=== PATIENT | male | born 1995 | race Caucasian/White ===

== ENCOUNTER 2023-01-10 09:12 | Outpatient (CLI) | payer OTHER, SELFPAY ==
[2023-01-10 20:00] LABS: Alanine Aminotransferase 73 U/L (6-50); Albumin Level 4.5 g/dL (3.5-5.1); Alkaline Phosphatase 59 U/L (38-126); Anion Gap 4 mmol/L (8-16); Aspartate Amino Transferase 79 U/L (17-59); Blood Urea Nitrogen 15 mg/dL (9-20); Calcium 9.3 mg/dL (8.4-10.2); Carbon Dioxide 30 mmol/L (22-30); Chloride 104 mmol/L (98-107); Cholesterol 190 mg/dL (0-200); Estimated Glomerular Filt Rate > 60; Glucose 81 mg/dL (65-110); HDL Direct 59 mg/dL; Potassium 4.3 mmol/L (3.4-5.0); Sodium 138 mmol/L (137-145); Triglycerides 70 mg/dL (<150)
[2023-01-10 20:16] LABS: LDL Cholesterol Direct 94 mg/dL
[2023-01-10 20:36] LABS: Hemoglobin 14.2 g/dL (14.0-18.0); Mean Corpuscular HGB Conc 30.9 g/dl (32-36); Mean Corpuscular Hemoglobin 31.6 pg (26-34); Mean Corpuscular Volume 102.2 fl (80-100); Mean Platelet Volume 13.1 fl (7.4-10.4); Platelet Count Result 190 k/mm3 (150-375); Red Cell Distribution Width 11.9 % (11.5-14.5); White Blood Count 5.2 K/mm3 (4.5-10.0)
== END 2023-01-10 09:13 | disposition home or self-care (01) ==
PROVIDERS: PCP Nurse Practitioner Adult Health; Visit Provider Nurse Practitioner Adult Health
DX: Z13.9 Encounter for screening, unspecified (principal)
CPT/HCPCS: 36415; 80053; 80061; 84443; 85027; 85055

== ENCOUNTER 2023-01-14 09:03 | Outpatient (CLI) | payer OTHER, SELFPAY ==
[2023-01-14 19:17] LABS: Basophils Absolute Auto 0.1 K/mm3 (0.0-0.1); Basophils Percent Auto 1.1 % (0.2-1.2); Eosinophils Absolute Auto 0.3 K/mm3 (0-0.3); Eosinophils Percent Auto 5.4 % (0-4.4); Hematocrit 47.3 % (42.0-52.0); Hemoglobin 15.2 g/dL (14.0-18.0); Immature Granulocyte Absolute 0.03 K/mm3 (0.00-0.031); Immature Granulocyte Percent A 0.6 % (0-0.5); Lymphocytes Absolute Auto 1.65 K/mm3 (0.9-3.2); Lymphocytes Percent Auto 30.7 % (18.3-44.2); Mean Corpuscular HGB Conc 32.1 g/dl (32-36); Mean Corpuscular Hemoglobin 32.5 pg (26-34); Mean Corpuscular Volume 101.1 fl (80-100); Monocytes Absolute Auto 0.5 K/mm3 (0.1-0.6); Monocytes Percent Auto 8.4 % (2.6-8.5); Neutrophils Absolute Auto 2.9 K/mm3 (1.3-6.7); Neutrophils Percent Auto 53.8 % (45.5-73.1); Platelet Count Result 185 k/mm3 (150-375); Red Blood Count 4.68 M/mm3 (4.6-6.20); Red Cell Distribution Width 11.7 % (11.5-14.5); White Blood Count 5.4 K/mm3 (4.5-10.0)
== END 2023-01-14 09:04 | disposition home or self-care (01) ==
PROVIDERS: PCP Nurse Practitioner Adult Health; Visit Provider Nurse Practitioner Adult Health
DX: D69.1 Qualitative platelet defects (principal)
CPT/HCPCS: 36415; 85025

== ENCOUNTER 2024-04-23 07:30 | Outpatient (CLI) | payer OTHER, SELFPAY ==
[2024-04-23 20:02] LABS: Hematocrit 47.1 % (42.0-52.0); Hemoglobin 14.8 g/dL (14.0-18.0); Mean Corpuscular HGB Conc 31.4 g/dl (32-36); Mean Corpuscular Hemoglobin 30.6 pg (26-34); Mean Corpuscular Volume 97.3 fl (80-100); Platelet Count Result 210 k/mm3 (150-375); Red Blood Count 4.84 M/mm3 (4.6-6.20); Red Cell Distribution Width 12.2 % (11.5-14.5); White Blood Count 6.7 K/mm3 (4.5-10.0)
[2024-04-23 20:16] LABS: Alanine Aminotransferase 80 U/L (6-50); Albumin Level 4.3 g/dL (3.5-5.1); Alkaline Phosphatase 76 U/L (38-126); Anion Gap 5 mmol/L (4-12); Aspartate Amino Transferase 84 U/L (17-59); Bilirubin,Total 0.7 mg/dL (0.2-1.3); Blood Urea Nitrogen 18 mg/dL (9-20); Calcium 9.2 mg/dL (8.4-10.2); Carbon Dioxide 27 mmol/L (22-30); Chloride 107 mmol/L (98-107); Cholesterol 223 mg/dL (0-200); Estimated Glomerular Filt Rate > 60; Glucose 84 mg/dL (65-110); HDL Direct 61 mg/dL; Sodium 139 mmol/L (137-145); Triglycerides 180 mg/dL (<150)
[2024-04-23 20:27] LABS: LDL Cholesterol Direct 103 mg/dL
[2024-04-23 21:36] LABS: Hemoglobin A1C 5.1 % (<5.7)
--- OUTSIDE RECORDS SUMMARY | 2024-04-30 06:59 | XMS_ITS | Encounter Summary ---
Author Organization [facility] Address [address] [facility] [address] [place] [id number] Care Team Providers Care Orthotic Practitioner Name Role Phone Marta Buckner NP Primary Care Provider [phone] Reason for Visit * Reason Comments [place] [facility] Redness began yester day. This morning eye was matted closed. Redness today and no change in vision. Denies pain or itchiness. Nothing taken for his sx. 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 Gender Identity Not on file Sexual Orientation Not on file documented as of this encounter Last Filed Vital Signs Vital Sign Reading Time Taken Comments Blood Pressure 126/74 01/27/2023 3:25 PM CDT Pulse 108 01/27/2023 3:25 PM CDT Temperature 36.4 ??C (97.5 ??F) 01/27/2023 3:25 PM CD T Respiratory Rate 16 01/27/2023 3:25 PM CDT Oxygen Saturation 99% 01/27/2023 3:25 PM CDT Inhaled Oxygen Concentration - - Weight 133.8 kg (295 lb) 01/27/2023 3:25 PM CDT Height 177.8 cm (5' 10 ) 01/27/2023 3:25 PM CDT Body Mass Index 42.33 01/27/2023 3:25 PM CDT documented in this encounter Patient Instructions * Patient Instructions* Dimple Horn NP - 01/27/2023 3:30 PM CDT Bacterial Conjunctivitis is contagious. You should not attend work/school/daycare until after usingantibiotics for 24 hours. Use antibiotic drops/ointment as prescribed. Tilt your head back and with one finger gently pull down on the lower eyelid. Drop the prescribed number of drops into the affected eye. Do not blink. Then close both eyes without blinking and block your tear ducts by using your fingers to put mild pressure on your tear ducts (where your eyes meet your nose). Stay in this position for 1-2 minutes minutes to bathe your eyes in the medication. Do not wear contacts while being treated with antibiotics. Use separate towels and wash hands frequently to help prevent the spread of infection. Cool compresses to the affected eye as needed for discomfort. Tylenol or ibuprofen for pain as needed. Follow up with Marta Buckner NP if not improved after 4 days. Follow up in the ED or with ophthalmology for further evaluation if symptoms worsen. documented in this encounter Ordered Prescriptions Prescription Sig Dispense Quantity Refills Last Filled Start Date End Date polymyxin B-trimethoprim (POLYTRIM) ophthalmic solutionIndications :Acute conjunctivitis of right eye, unspecified acute conjunctivitis type Administer 1 drop into the right eye every 4 (four) hours while awake for 7 days 35 mL 01/27/2023 3 documented in this encounter Progress Notes * Dimple Horn NP - 01/27/2023 3:30 PM CDT Images from the original note were not included. Subjective/Objective Patient ID: Ramakrishna Baptiste is a 27 y.o. male. Chief Complaint [place] [facility] (Redness began yesterday. This morning eye was matted closed. Redness today and no change in vision. Denies pain or itchiness. Nothing taken for his sx.) Patient presents to convenient care for right eye redness and drainage x1 day. He states that this morning his right eye was matted shut. He states that he has had a sore throat since last week. He denies any known exposure to pinkeye or strep. He denies any known injury to eye. He does not wear contacts. He has not used any OTC medications for his symptoms. He denies any changes in vision. Review of Systems Constitutional: Negative for activity change, appetite change, fatigue and fever. HENT: Negative for congestion, ear discharge, ear pain, postnasal drip, rhinorrhea, sinus pressure and sore throat. Eyes: Positive for discharge and redness. Respiratory: Negative for cough and shortness of breath. Gastrointestinal: Negative for diarrhea, nausea and vomiting. Musculoskeletal: Negative for myalgias. Skin: Negative for rash. Neurological: Negative for headaches. Hematological: Negative for adenopathy. Physical Exam Vitals reviewed. Constitutional: General: He is not in acute distress. Appearance: Normal appearance. He is well-developed. He is not ill-appearing. HENT: Head: Normocephalic. Right Ear: Tympanic membrane, ear canal and external ear normal. Left Ear: Tympanic membrane, ear canal and external ear normal. Nose: No congestion or rhinorrhea. Right Sinus: No maxillary sinus tenderness or frontal sinus tenderness. Left Sinus: No maxillary sinus tenderness or frontal sinus tenderness. Mouth/Throat: Lips: [place]. Mouth: Mucous membranes are moist. Pharynx: Oropharynx is clear. Eyes: General: Right eye: Discharge present. Left eye: No discharge. Conjunctiva/sclera: Right eye: Right conjunctiva is injected. Cardiovascular: Rate and Rhythm: Normal rate and regular rhythm. Pulmonary: Effort: Pulmonary effort is normal. No respiratory distress. Breath sounds: Normal breath sounds and air entry. Musculoskeletal: General: Normal range of motion. Cervical back: Neck supple. Lymphadenopathy: Head: Right side of head: No tonsillar adenopathy. Left side of head: No tonsillar adenopathy. Cervical: No cervical adenopathy. Skin: General: Skin is warm and dry. Findings: No rash. Neurological: Mental Status: He is alert and oriented to person, place, and time. Mental status is at baseline. Psychiatric: Attention and Perception: Attention normal. Mood and Affect: Mood normal. Behavior: Behavior normal. Behavior is cooperative. Thought Content: Thought content normal. Judgment: Judgment normal. Vitals: 01/27/23 1525 BP: 126/74 Pulse: 108 Resp: 16 Temp: 36.4 ??C (97.5 ??F) TempSrc: Temporal SpO2: 99% Weight: 133.8 kg (295 lb) Height: 177.8 cm (5' 10 ) Assessment/Plan Rapid strep negative Polytrim drops as prescribed Use your eye drops or ointment as directed Practice good hand hygiene before and after administering medication Use cool compress and/or artificial tears prn for discomfort Wash your hands if you touch your eye Do not use contact lenses while symptoms present Do not touch the tip of the medication bottle to your eye Follow up with PCP if you are not getting better in a 3-4 days Go to the ER if you experience deep eye pain or vision loss/changes Diagnoses and all orders for this visit: Acute conjunctivitis of right eye, unspecified acute conjunctivitis type (Primary) - polymyxin B-trimethoprim (POLYTRIM) ophthalmic solution; Administer 1 drop into the right eye every 4 (four) hours while awake for 7 days Sore throat - POCT rapid strep A Recent Results (from the past 4 hour(s)) POCT rapid strep A Collection Time: 01/27/23 3:51 PM Result Value Ref Range Rapid Strep A, POC Negative Negative Patient Education: Disposition Treatment plan including expectations, follow up, and return precautions discussed with patient/parent, verbalizes understanding. Medication dosage, use, and potential adverse reactions discussed with patient/parent. Advised to follow up with PCP if symptoms do not resolve as expected or sooner if condition worsens. Signs/symptoms warranting ER evaluation reviewed. Patient and/or guardian was given an opportunity to ask questions, questions answered. Dimple Horn NP documented in this encounter Plan of Treatment Not on file documented as of this encounter Procedures Procedure Name Priority Date/Time Associated Diagnosis Comments POCT RAPID STREP Routine 01/27/2023 3:51 PM CDT Sore throat documented in this encounter Results * POCT rapid strep A (01/27/2023 3:51 PM CDT) Rapid Strep A, POC Negative Negative Swab 01/27/2023 3:51 PM CDT Dimple Horn NP POINT OF CARE TEST ORDERABLES Fi nal Result documented in this encounter Visit Diagnoses Diagnosis Acute conjunctivitis of right eye, unspecified acute conjunctivitis type- Primary Sore throat Acute pharyngitis documented in this encounter Care Teams Orthotic Practitioner Relationship Specialty Start Date End Date Marta Buckner NP [facility] [place] [address] PCP - General Nurse Practitioner 01/27/23 documented as of this encounter
--- OUTSIDE RECORDS SUMMARY | 2024-04-30 06:59 | XMS_ITS | Clinical Summary ---
Author Organization [id number] [place] Address [address] [place] [address] Care Team Providers Care Glass Blower Helper Name Role Phone Marta Buckner NP Primary Care Provider [phone] Allergies No known active allergies Medications No known medications Active Problems No known active problems Surgical History Surgery Date Site/Laterality Comments LASIK SPINE SURGERY 11/2008 Family History Medical History Relation Name Comments Hypertension Father Winston Baptiste Relation Name Status Comments Father Winston Baptiste Social History Tobacco Use Types Packs/Day Years Used Date Smoking Tobacco: Never Smokeless Tobacco: Never Tobacco Cessation:Counseling Given: Not Answered Sex and Gender Information Value Date Recorded Sex Assigned at Not on file 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 Gender Identity Not on file Sexual Orientation Not on file Obstetrics History Last Filed Vital Signs Vital Sign Reading [...] Mass Index 42.33 01/27/2023 3:25 PM CDT Plan of Treatment Health Maintenance Due Date Last Done Comments Depression Screening 1993 Hepatitis C Screening 1993 Regular Well Visit/Exam 18-64 11/22/2011 Covid-19 Vaccine ( season) 2024 03/14/2022, 03/22/2021, 08/05/2020, Additional history exists Influenza Vaccine (#1) 2024 , 01/15/2017, 02/04/2016, Additional history exists DTaP/Tdap/Td Vaccine (8 - Td or Tdap) 02/06/2027 02/06/2017, 10/31/2006, 03/05/2005, Additional history exists Varicella Vaccines Completed 10/31/2006, 03/11/1998 HPV Vaccines Aged Out No longer eligi ble based on patient's age to complete this topic Pneumococcal vaccine <65 Aged Out No longer eligible based on patient's age to complete this topic Insurance [facility] CHOICE PLUS [facility] HMO/PPO Address: [facility] [id number] [place] [address] Care Teams Glass Blower Helper Relationship Specialty Start Date End Date Marta Buckner NP [address] [place] [address] [place] [address] PCP - General Nurse Practitioner 01/27/23
--- OUTSIDE RECORDS SUMMARY | 2024-04-30 06:59 | XMS_ITS | Encounter Summary ---
Author Organization [facility] Facility Care Team Providers Care Alliance Manager Name Role Phone Unavailable Primary Care Provider Unavailabl e Encounter Details Date Type Department Care Team ([facility] st Contact Info) Description 12/25/2008 9:55 PM CDT - 12/27/2008 9:20 AM CDT Hospital Encounter [facility] Josiah Hughes MD [address] [place] [address] Closed fracture of lumbar vertebra with spinal cord injury (HCC); Fracture of bone; Place of occurrence, place for recreation and sport Social History Tobacco Use Types Packs/Day Years Used Date Smoking Tobacco: Never Assessed Sex and Gender Information Value Date Recorded Sex Assigned at Not on file 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
--- OUTSIDE RECORDS SUMMARY | 2024-04-30 06:59 | XMS_ITS | Referral Summary ---
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
--- OUTSIDE RECORDS SUMMARY | 2024-04-30 06:59 | XMS_ITS | Encounter Summary ---
Author Organization [facility] Address [address] [place] [address] Care Team Providers Care Production Engineer Name Role Phone No, Physician Primary Care Provider [phone] Reason for Visit * Reason Comments COVID-19 EVALUATION fever, sore throat, cough 05/09/21. Exp 05/06/21 Encounter Details Date Type Department Care Team (Late st Contact Info) Description 05/11/2021 2:45 PM AIRPLANE CAPTAIN Office Visit [facility] [address] [place] [address] [place] [address] Karo Dumont, LAND DEGRADATION ANALYST [address] [address] Viral URI with cough (Primary Dx); Sore throat; Close exposure to COVID-19 virus Social History Tobacco Use Types Packs/Day Years Used Date Smoking Tobacco: Never Assessed Sex and Gender Information Value Date Recorded Sex Assigned at Not on file Legal Sex Male 6:39 AM AIRPLANE CAPTAIN Gender Identity Not on file Sexual Orientation Not on file documented as of this encounter Last Filed Vital Signs Vital Sign Reading Time Taken Comments Blood Pressure 120/84 05/11/2021 2:53 PM AIRPLANE CAPTAIN Pulse 115 05/11/2021 2:53 PM AIRPLANE CAPTAIN Temperature 37.2 ??C (99 ??F) 05/11/2021 2:53 PM AIRPLANE CAPTAIN Respiratory Rate 18 05/11/2021 2:53 PM AIRPLANE CAPTAIN Oxygen Saturation 97% 05/11/2021 2:53 PM AIRPLANE CAPTAIN Inhaled Oxygen Concentration - - Weight 124.7 kg (275 lb) 05/11/2021 2:53 PM AIRPLANE CAPTAIN Height 177.8 cm (5' 10 ) 05/11/2021 2:53 PM AIRPLANE CAPTAIN Body Mass Index 39.46 05/11/2021 2:53 PM AIRPLANE CAPTAIN documented in this encounter Patient Instructions * Patient Instructions* Karo Dumont, LAND DEGRADATION ANALYST - 05/11/2021 2:45 PM AIRPLANE CAPTAIN Although you have not been diagnosed with COVID-19, your presenting symptoms could be indicative ofCOVID infection and it is recommended that you stay home for recovery at this time. You may use acetaminophen and/or ibuprofen to control pain and fever. If you have chronic liver disease, have ever had a stomach ulcer or gastrointestinal bleeding talk with your healthcare provider before using these medicines. Aspirin should never be given to anyone under 18 years of age who is ill with a viral infection or fever. It may cause severe liver or brain damage. Your appetite may be poor, so a light diet is ok. Stay well hydrated by drinking 6 to 8 glasses of fluids per day (water, soft drinks, juices, tea, or soup). Extra fluids will help loosen secretions in the nose and lungs. Oymz-rat-qarnisf cold medicines will not shorten the length of time you???re sick, but they may be helpful for relieving the following symptoms: headache, cough, sore throat, and nasal and sinus congestion. If you take prescription medicines, ask your healthcare provider or pharmacist which ajli-csk-koazzow medicines are safe to use. (Note: DO NOT use decongestants if you have high blood pressure.) Steps to help prevent the spread of COVID-19 if you are sick If you are sick with COVID-19 or think you might have COVID-19, follow the steps below to care for yourself and to help protect other people in your home and community. Stay home except to get medical care ??? Most people with COVID-19 have mild illness and are able to recover at home without medical care. Do not leave your home, except to get medical care. Do not visit public areas. ??? Take care of yourself. Get rest and stay hydrated. Take nvcz-znm-kjjkkhd medicines to help you feel better. ??? Stay in touch with your doctor. Call before you get medical care. Be sure to get care if you have trouble breathing, or have any other emergency warning signs, or if you think it is an emergency. ??? Avoid using public transportation, ride-sharing, or taxis. Monitor your symptoms ??? Symptoms of COVID-19 include fever, cough, shortness of breath or difficulty breathing, fatigue, muscle or body aches, headache, new loss of taste or smell, sore throat, congestion, runny nose, nausea, vomiting, or diarrhea. When to Seek Medical Attention If you develop emergency warning signs for COVID-19 get medical attention immediately. Emergency warning signs include*: ??? Trouble breathing ??? Persistent pain or pressure in the chest ??? New confusion or inability to arouse ??? Bluish lips or face *This list is not all inclusive. Please consult your medical provider for any other symptoms that are severe or concerning. Call 911 if you have a medical emergency: If you have a medical emergency and need to call 911, notify the kiln transfer operator that you have or think you might have, COVID-19. If possible, put on a facemask before medical help arrives. Separate yourself from other people in your home, this is known as home isolation ??? As much as possible, you should stay away from other people and pets in your home. You should stay in a specific ???sick room?? if possible. Use a separate bathroom, if available. If you need cj around other people or animals in or outside of the home, wear a mask For more information on sharing close living quarters with someone who is sick visit https://www.cdc .gov/coronavirus/2019-ncov/dfuyt-wask-aserza/zgssoc-kt-bdgst-quarters.html For more information on COVID-19 and pets visit https://www.cdc.gov/coronavirus/2019-ncov/faq.html Call ahead before visiting your doctor ??? Many medical visits for routine care are being postponed or done by phone or telemedicine. ??? If you have a medical appointment that cannot be postponed, call your doctor???s office, and tell them you have or may have COVID-19. This will help the office protect themselves and other patients. If you are sick wear a face mask over your nose and mouth in the following situations ??? You should wear a face mask over your nose and mouth if you must be around other people or animals, including pets (even at home). ??? You don't need to wear the face mask if you are alone. If you can't put on a face mask (becauseof trouble breathing, for example), cover your coughs and sneezes in some other way (tissue or inner elbow). Try to stay at least 6 feet away from other people. This will help protect the people around you. ??? Face masks should not be placed on children under 2 years old, anyone who has trouble breathing, or anyone who is not able to remove the covering without help. Note: During the COVID-19 pandemic, medical grade facemasks are reserved for healthcare workers andsome first responders. You may need to use a cloth face covering. Cover your coughs and sneezes ??? Cover your mouth and nose with a tissue or the inside of your elbow when you cough or sneeze. ??? Throw used tissues in a lined trash can. ??? Immediately wash your hands with soap and water for at least 20 seconds. If soap and water are not available, clean your hands with an alcohol-based hand slot machine repairer that contains at least 60% alcohol. Clean your hands often ??? Wash your hands often with soap and water for at least 20 seconds. This is especially importantafter blowing your nose, coughing, or sneezing; going to the bathroom; and before eating or preparing food. ??? Use hand slot machine repairer if soap and water are not available. Use an alcohol-based hand slot machine repairer with at least 60% alcohol, covering all surfaces of your hands and rubbing them together until they feel dry. ??? Soap and water are the best option, especially if hands are visibly dirty. ??? Avoid touching your eyes, nose, and mouth especially with unwashed hands. Avoid sharing personal household items ??? Do not share dishes, drinking glasses, cups, eating utensils, towels, or bedding with other people in your home. ??? After using these items, wash them thoroughly with soap and water or put them in the telephone surveyor. Clean all ???high-touch?? surfaces everyday. High-touch surfaces include phones, remote controls, counters, tabletops, doorknobs, bathroom fixtures, toilets, keyboards, tablets, and bedside tables. ??? Clean and disinfect high-touch surfaces in your ???sick room?? and bathroom everyday while wearing disposable gloves. Let someone else clean and disinfect surfaces in common areas, but not your bedroom and bathroom. ??? If a caregiver or other person needs to clean and disinfect a sick person???s bedroom or bathroom, they should do so on an as-needed basis. The caregiver/other person should wear a mask and disposable gloves prior to cleaning.They should wait as long as possible after the sick person has used the bathroom before coming in to clean and use the bathroom. ??? Clean and disinfect areas that may have blood, stool, or body fluids on them. ??? Clean the area or item with soap and water or another detergent if it is dirty. Then, use a household disinfectant. o Be sure to follow the instructions on the label to ensure safe and effective use of the product. Many products recommend keeping the surface wet for several minutes to ensure germs are killed. Manyalso recommend precautions such as wearing gloves and making sure you have good ventilation during use of the product. o Most EPA-registered household disinfectants should be effective. When you can be around others (end home isolation) depends on different factors for different situations. If you think or know you have COVID-19, and you had symptoms you can be with others after ??? 24 hours with no fever (without the use of fever reducing medications) AND ??? Respiratory symptoms have improved (cough, shortness of breath) AND ??? 10 days since symptoms first appeared. ??? Loss of taste and smell may persist for weeks or months after recovery and need not delay the end of isolation If you tested positive for COVID-19 but had no symptoms you can be with others after ??? 10 days have passed since the test. ??? If you develop symptoms after testing positive, follow the guidance above for I think or I know I had COVID, and I had symptoms . If you have a weakened immune system due to a health condition or medication you can be around others ??? People with conditions that weaken their immune system might need to stay home longer than 5-10days. Talk to your healthcare provider for more information. If You Test Positive for COVID-19 (Isolate) Everyone, regardless of vaccination status. Stay home for 5 days. If you have no symptoms or your symptoms are resolving after 5 days, you can leave your house. Continue to wear a mask around others for 5 additional days. If you have a fever, continue to stay home until your fever resolves. If You Were Exposed to Someone with COVID-19 (Quarantine) If you: Have been boosted OR Completed the primary series of Pfizer or Moderna vaccine within the last 6 months OR Completed the primary series of J&J vaccine within the last 2 months: Wear a mask around others for 10 days. Test on day 5, if possible. If you develop symptoms get a test and stay home. If you: Completed the primary series of Pfizer or Moderna vaccine over 6 months ago and are not boosted OR Completed the primary series of J&J over 2 months ago and are not boosted OR Are unvaccinated: Stay home for 5 days. After that continue to wear a mask around others for 5 additional days. If you can???t quarantine you must wear a mask for 10 days. Test on day 5 if possible. If you develop symptoms, get a test & stay home In all cases, follow the guidance of your healthcare provider and local health department regardingquarantine guidelines. The decision to stop home isolation should be made in consultation with yourhealthcare provider and state and local health departments. Local decisions depend on local circumstances. The above information is from the CDC website on January 07, 2020. Page last reviewed: December 16, 2019. Additional information and resources about COVID-19 symptoms, testing, self- isolation, how to prevent spread, and more are available at: https://www.cdc.gov/coronavirus LANE CAPTAIN documented in this encounter Progress Notes * Karo Dumont NP - 05/11/2021 2:45 PM CST Images from the original note were not included. Subjective/Objective Patient ID: Ramakrishna Baptiste is a 25 y.o. male. Chief Complaint COVID-19 EVALUATION (fever, sore throat, cough 05/09/21. Exp 05/06/21) Presents to clinic for fever, sore throat, cough x2 days. He has taken OTC meds. He had covid exp 05/06, he had the vaccine. Review of Systems Constitutional: Positive for fever. Negative for activity change, appetite change and fatigue. HENT: Positive for sore throat. Negative for congestion, ear discharge, ear pain, postnasal drip, rhinorrhea and sinus pressure. Eyes: Negative for discharge. Respiratory: Positive for cough. Negative for shortness of breath. Gastrointestinal: Negative for diarrhea, [...] tenderness or frontal sinus tenderness. Mouth/Throat: Lips: [place]. Mouth: Mucous membranes are moist. Pharynx: Oropharynx is clear. Eyes: General: Right eye: No discharge. Left eye: No discharge. Conjunctiva/sclera: Conjunctivae normal. Cardiovascular: Rate and Rhythm: Normal rate and regular rhythm. Pulmonary: Effort: Pulmonary effort is normal. No respiratory distress. Breath sounds: Normal breath sounds and air entry. Abdominal: Tenderness: There is no abdominal tenderness. Musculoskeletal: General: Normal range of motion. Cervical [...] Thought content normal. Judgment: Judgment normal. Vitals: 05/11/21 1453 BP: 120/84 Pulse: 115 Resp: 18 Temp: 37.2 ??C (99 ??F) SpO2: 97% Weight: 124.7 kg (275 lb) Height: 177.8 cm (5' 10 ) Assessment/Plan Complete any medications as prescribed You will need to take OTC medications Mucinex for chest congestion Sudafed for nasal/head congestion Zyrtec for nasal drainage Flonase for sinuses Dayquil/Delysm for cough Tylenol/Motrin for fever Drink plenty of fluids to stay hydrated Get plenty of rest If your symptoms worsen or you experience shortness of breath, RTC or go to ER. If you have been prescribed any medications, take them as directed Negative Covid Today Quarantine instructions given for patient & family Instructed to to treat symptoms w OTC meds Discussed symptoms that require reevaluation Discussed symptoms that warrant an ER evaluation Diagnoses and all orders for this visit: Viral URI with cough (Primary) Sore throat - POC Influenza A/B, COVID-19 antigen - POCT rapid strep A Close exposure to COVID-19 virus No results found for this or any previous visit (from the past 4 hour(s)). Patient Education: Disposition ??? Treatment plan including expectations, follow up, and return precautions discussed with patient/parent, verbalizes understanding. ??? Medication dosage, use, and potential adverse reactions discussed with patient/parent. ??? Advised to follow up with PCP if symptoms do not resolve as expected or sooner if condition worsens. ??? Signs/symptoms warranting ER evaluation reviewed. ??? Patient and/or guardian was given an opportunity to ask questions, questions answered. Karo Dumont NP LANE CAPTAIN documented in this encounter Plan of Treatment Not on file documented as of this encounter Procedures Procedure Name Priority Date/Time Associated Diagnosis Comments POCT RAPID STREP Routine 05/11/2021 3:04 PM AIRPLANE CAPTAIN Sore throat POC INFLUENZA A/B, COVID-19 ANTIGEN Routine 05/11/2021 3:03 PM AIRPLANE CAPTAIN Sore throat documented in this encounter Results * Throat culture Throat (05/11/2021 3:06 PM AIRPLANE CAPTAIN) Report Final Report: No growth of pathogens. BENI MUELLER Comment:Testing performed by : [facility], [address], [place]., [address] Throat 05/11/2021 3:06 PM AIRPLANE CAPTAIN 05/11/2021 11:12 PM AIRPLANE CAPTAIN Narrative BENI MUELLER - 05/12/2021 8:41 PM AIRPLANE CAPTAIN Testing performed by [facility] ([phone]). Karo Dumont LAND DEGRADATION ANALYST LAB MICROBIOLOGY - [facility] ORDERABLES Final Result BENI MUELLER [address] [place] [address] * POCT rapid strep A (05/11/2021 3:04 PM AIRPLANE CAPTAIN) Rapid Strep A, POC Negative Swab 05/11/2021 3:04 PM AIRPLANE CAPTAIN Karo Dumont LAND DEGRADATION ANALYST POINT OF CARE TEST OR DERABLES Final Result * POC Influenza A/B, COVID-19 antigen (05/11/2021 3:03 PM AIRPLANE CAPTAIN) Influenza A Ag, POC Negative [facility] Influenza B Ag, POC Negative [facility] COVID-19 Ag POC Presumptive Negative Presumptive Negative, Invalid [facility] Nasal 05/11/2021 3:03 PM AIRPLANE CAPTAIN Karo Dumont LAND DEGRADATION ANALYST POINT OF CARE TEST OR DERABLES Final Result [facility] [address] [place] [address] [place] [address] documented in this encounter Visit Diagnoses Diagnosis Viral URI with cough- Primary Sore throat Acute pharyngitis Close exposure to COVID-19 virus Sore throat Acute pharyngitis documented in this encounter Additional Health Concerns Infection Onset Date Last Indicated Resolved Time COVID: Suspected 05/11/2021 05/11/2021 05/11/2021 3:04 PM AIRPLANE CAPTAIN documented as of this encounter Care Teams Production Engineer Relationship Specialty Start Date End Date No, Physician PCP - General 05/10/21 01/26/23 documented as of this encounter
--- OUTSIDE RECORDS SUMMARY | 2024-04-30 06:59 | XMS_ITS | Encounter Summary ---
Author Organization [facility] Address [address] [place] [address] Care Team Providers Care Door Framer Name Role Phone No, Physician Primary Care Provider [phone] Encounter Details Date Type Department Care Team (Late st Contact Info) Description 05/11/2021 8:50 PM WEB PAGE DEVELOPER Lab [address] [address] Sore throat Social History Tobacco Use Types Packs/Day Years Used Date Smoking Tobacco: Never Assessed Sex and Gender Information Value Date Recorded Sex Assigned at Not on file Legal Sex Male 6:39 AM WEB PAGE DEVELOPER Gender Identity Not on file Sexual Orientation Not on file documented as of this encounter Miscellaneous Notes * Result Encounter Note - Karo Dumont NP - 05/13/2021 2:36 PM WEB PAGE DEVELOPER Call pt regarding abnormal result PAGE DEVELOPER * Result Encounter Note - Karo Dumont NP - 05/13/2021 9:19 AM WEB PAGE DEVELOPER Call pt regarding normal result-throat culture PAGE DEVELOPER documented in this encounter Plan of Treatment Not on file documented as of this encounter Procedures Procedure Name Priority Date/Time Associated Diagnosis Comments THROAT CULTURE Routine 05/11/2021 3:06 PM WEB PAGE DEVELOPER Sore throat documented in this encounter Results * Throat culture Throat (05/11/2021 3:06 PM WEB PAGE DEVELOPER) Report Final Report: No growth of pathogens. BENI MUELLER Comment:Testing performed by : [facility], [address] [place]., [address] Throat 05/11/2021 3:06 PM WEB PAGE DEVELOPER 05/11/2021 11:12 PM WEB PAGE DEVELOPER Narrative BENI MUELLER - 05/12/2021 8:41 PM WEB PAGE DEVELOPER Testing performed by [facility] ([phone]). Karo Dumont NP LAB MICROBIOLOGY - [facility] ORDERABLES Final Result BENI MUELLER [address] Department [place] [address] documented in this encounter Visit Diagnoses Diagnosis Sore throat Acute pharyngitis documented in this encounter Care Teams Door Framer Relationship Specialty Start Date End Date No, Physician PCP - General 05/10/21 01/26/23 documented as of this encounter
== END 2024-04-23 07:31 | disposition home or self-care (01) ==
LOC: ANHBWCLAB 07:31
PROVIDERS: PCP Nurse Practitioner Adult Health; Visit Provider Nurse Practitioner Adult Health
DX: Z13.9 Encounter for screening, unspecified (principal); E66.9 Obesity, unspecified
CPT/HCPCS: 36415; 80053; 80061; 83036; 84443; 85027

== ENCOUNTER 2024-05-14 07:28 | Outpatient (CLI) | payer OTHER, SELFPAY ==
[2024-05-14 20:10] LABS: Alanine Aminotransferase 39 U/L (6-50); Albumin Level 4.2 g/dL (3.5-5.1); Alkaline Phosphatase 67 U/L (38-126); Aspartate Amino Transferase 35 U/L (17-59); Bilirubin,Total 0.7 mg/dL (0.2-1.3)
== END 2024-05-14 07:29 | disposition home or self-care (01) ==
LOC: ANHBWCLAB 07:29
PROVIDERS: PCP Nurse Practitioner Adult Health; Visit Provider Nurse Practitioner Adult Health
DX: R74.8 Abnormal levels of other serum enzymes (principal)
CPT/HCPCS: 36415; 80076

== ENCOUNTER 2024-10-22 07:41 | Outpatient (CLI) | payer OTHER, SELFPAY ==
[2024-10-22 20:28] LABS: Alanine Aminotransferase 72 U/L (6-50); Albumin Level 4.4 g/dL (3.5-5.1); Alkaline Phosphatase 63 U/L (38-126); Anion Gap 9 mmol/L (4-12); Aspartate Amino Transferase 76 U/L (17-59); Bilirubin,Total 0.7 mg/dL (0.2-1.3); Blood Urea Nitrogen 22 mg/dL (9-20); Calcium 9.6 mg/dL (8.4-10.2); Carbon Dioxide 26 mmol/L (22-30); Chloride 106 mmol/L (98-107); Cholesterol 206 mg/dL (0-200); Estimated Glomerular Filt Rate > 60; Glucose 85 mg/dL (65-110); HDL Direct 61 mg/dL; Potassium 4.6 mmol/L (3.4-5.0); Sodium 141 mmol/L (137-145); Total Protein 7.5 g/dL (6.3-8.2); Triglycerides 97 mg/dL (<150)
[2024-10-22 20:41] LABS: LDL Cholesterol Direct 91 mg/dL
== END 2024-10-22 07:42 | disposition home or self-care (01) ==
LOC: ANHBWCLAB 07:42
PROVIDERS: PCP Nurse Practitioner Adult Health; Visit Provider Nurse Practitioner Adult Health
DX: E78.5 Hyperlipidemia, unspecified (principal)
CPT/HCPCS: 36415; 80053; 80061

== ENCOUNTER 2024-10-31 07:36 | Outpatient (CLI) | payer OTHER, SELFPAY ==
--- NOTE | ~2024-10-31 | US_ITS ---
Limited Abdominal Sonogram: Real-time sonographic imaging of the right upper quadrant was performed. Clinical History: Abnormal serum enzyme levels Findings: The liver appears normal with no evidence of mass lesion or bile duct dilatation. Main por johana vein demonstrates normal direction of flow. The gallbladder is well distended, and contains proba ble small gallstones. No gallbladder wall thickening evident. The common bile duct measures 5 mm. Th e visualized pancreas, aorta, and IVC are unremarkable. Right kidney unremarkable. Impression: Suspected small gallstones or sludge. Reviewed, dictated and finalized at location M. Impression: Suspected small gallstones or sludge.
== END 2024-10-31 07:37 | disposition home or self-care (01) ==
LOC: MICIMG 07:37
PROVIDERS: PCP Nurse Practitioner Adult Health; Visit Provider Nurse Practitioner Adult Health
DX: R74.8 Abnormal levels of other serum enzymes (principal)
CPT/HCPCS: 76705

== ENCOUNTER 2025-04-23 07:38 | Outpatient (CLI) | payer OTHER, SELFPAY ==
--- OUTSIDE RECORDS SUMMARY | 2025-04-23 07:41 | XMS_ITS | Clinical Summary ---
Author Organization [id number] Address [address] [place] [address] Care Team Providers Care Team Assistant Name Role Phone Marta Buckner NP Primary Care Provider [phone] Allergies No known active allergies Medications No [...] on file Legal Sex Male 6:39 AM SEISMIC PLOTTER Gender Identity Not on file Sexual Orientation Not on file Last Filed Vital Signs Vital Sign Reading Time Taken Comments Blood Pressure 126/74 01/27/2023 3:25 PM CDT Pulse 108 01/27/2023 3:25 PM CDT Temperature 36.4 C (97.5 F) 01/27/2023 3:25 PM CDT Respiratory Rate 16 01/27/2023 3:25 PM CDT Oxygen Saturation 99% 01/27/2023 3:25 PM CDT Inhaled Oxygen Concentration - - Weight 133.8 kg (295 lb) 01/27/2023 3:25 PM CDT Height 177.8 cm (5' 10) 01/27/2023 3:25 PM CDT Body Mass Index 42.33 01/27/2023 3:25 PM CDT Plan of Treatment Health Maintenance Due Date Last Done Comments Depression Screening 1993 Hepatitis C Screening 1993 Regular Well Visit/Exam 18-64 11/22/2011 HPV Vaccines (1 - 3-dose SCDM series) 2020 Covid-19 Vaccine ( season) 2024 03/14/2022, 03/22/2021, 08/05/2020, Additional history exists Influenza Vaccine (#1) 2024 , 01/15/2017, 02/04/2016, Additional history exists DTaP/Tdap/Td Vaccine (8 - Td or Tdap) 02/06/2027 02/06/2017, 10/31/2006, 03/05/2005, Additional history exists Hepatitis B Screening Completed 05/25/1994 , 1993, 1993 Varicella Vaccines Completed 10/31/2006, 03/11/1998 Pneumococcal vaccine <65 Aged Out No longer eligible based on patient's age to complete this topic Insurance [facility] [employer] Care Teams Team Assistant Relationship Specialty Start Date End Date Marta Buckner NP [address] [place] [address] [place] [address] PCP - General Nurse Practitioner 01/27/23
[2025-04-23 18:42] LABS: Alanine Aminotransferase 86 U/L (6-50); Albumin Level 4.6 g/dL (3.5-5.1); Alkaline Phosphatase 64 U/L (38-126); Anion Gap 7 mmol/L (4-12); Aspartate Amino Transferase 111 U/L (17-59); Bilirubin,Total 0.7 mg/dL (0.2-1.3); Blood Urea Nitrogen 20 mg/dL (9-20); Calcium 9.9 mg/dL (8.4-10.2); Carbon Dioxide 29 mmol/L (22-30); Chloride 103 mmol/L (98-107); Estimated Glomerular Filt Rate > 60; Glucose 88 mg/dL (65-110); Potassium 4.5 mmol/L (3.4-5.0); Sodium 139 mmol/L (137-145); Total Protein 8.1 g/dL (6.3-8.2)
== END 2025-04-23 07:39 | disposition home or self-care (01) ==
LOC: ANHBWCLAB 07:39
PROVIDERS: PCP Nurse Practitioner Adult Health; Visit Provider Nurse Practitioner Adult Health
DX: R74.8 Abnormal levels of other serum enzymes (principal)
CPT/HCPCS: 36415; 80053